=== PATIENT | female | born 1965 | race African-American/Black ===

== ENCOUNTER → 2016-09-20 | Outpatient (CLI) | payer BC, OTHER ==
[2016-09-21 08:13] LABS: ABSOLUTE BASOPHILS # (AUTO) 0.1 10^3/uL (0.0-0.2); ABSOLUTE EOSINOPHILS # (AUTO) 0.1 10^3/uL (0.0-0.6); ABSOLUTE LYMPHOCYTES (AUTO) 2.2 10^3/uL (0.5-4.7); ABSOLUTE MONOCYTES (AUTO) 0.4 10^3/uL (0.1-1.4); ABSOLUTE NEUT (AUTO) 3.5 10^3/uL (1.7-8.2); EOSINOPHILS % (AUTO) 2.1 % (0-6); HEMATOCRIT 42.1 % (36.0-47.0); HEMOGLOBIN 13.6 g/dL (12.0-15.5); HGB HCT DIFFERENCE -1.3; LYMPHOCYTES % (AUTO) 35.3 % (13-45); MEAN CORPUSCULAR HEMOGLOBIN 27.6 pg (27.0-33.4); MEAN CORPUSCULAR HGB CONC 32.3 g/dL (32.0-36.0); MEAN CORPUSCULAR VOLUME 86 fl (80-97); MONOCYTES % (AUTO) 5.9 % (3-13); RED BLOOD COUNT 4.91 10^6/uL (3.72-5.28); RED CELL DISTRIBUTION WIDTH 13.6 % (11.5-14.0); SEGMENTED NEUTROPHILS % (AUTO) 55.7 % (42-78); WHITE BLOOD COUNT 6.3 10^3/uL (4.0-10.5)
[2016-09-21 08:17] LABS: APPEARANCE,URINE SLIGHTLY-CLOUDY; BILIRUBIN,URINE NEGATIVE (NEGATIVE); GLUCOSE, URINE NEGATIVE (NEGATIVE); KETONES,URINE NEGATIVE (NEGATIVE); LEUKOCYTE ESTERASE,URINE NEGATIVE (NEGATIVE); NITRITE,URINE NEGATIVE (NEGATIVE); PROTEIN,URINE NEGATIVE (NEGATIVE); URINE SPECIFIC GRAVITY 1.008; UROBILINOGEN,URINE NEGATIVE mg/dL (<2.0)
[2016-09-21 08:44] LABS: ALANINE AMINOTRANSFERASE 29 U/L (9-52); ALBUMIN 4.5 g/dL (3.5-5.0); ALKALINE PHOSPHATASE 57 U/L (38-126); ANION GAP 13 (5-19); ASPARTATE AMINO TRANSFERASE 27 U/L (14-36); BILIRUBIN,DIRECT 0.4 mg/dL (0.0-0.4); BLOOD UREA NITROGEN 13 mg/dL (7-20); CARBON DIOXIDE 31 mmol/L (22-30); CHLORIDE 100 mmol/L (98-107); CHOLESTEROL 179.26 mg/dL (0-200); CREATININE RESULT 0.89 mg/dL (0.52-1.25); Direct HDL 60 mg/dL (>40); GLUCOSE 92 mg/dL (75-110); POTASSIUM 3.6 mmol/L (3.6-5.0); SODIUM 144.4 mmol/L (137-145); TRIGLYCERIDES 61 mg/dL (<150); URIC ACID 5.6 mg/dL (2.5-7.5)
[2016-09-21 08:55] LABS: DIRECT LDL 98 mg/dL (<100)
[2016-09-21 09:10] LABS: THYROID STIMULATING HORMONE 3.38 uIU/mL (0.47-4.68)
[2016-09-22 10:37] LABS: CREATININE URINE 104.1 mg/dL (Not Estab.); MICROALBUMIN URINE 3.8 ug/mL (Not Estab.)
== END ==
LOC: OD 12:10
PROVIDERS: ATTEND Internal Medicine
DX: I10 Essential (primary) hypertension (principal)
CPT/HCPCS: 36415; 80053; 80061; 81001; 82043; 82570; 84439; 84443; 84550; 85025

== ENCOUNTER → 2017-03-29 | Outpatient (CLI) | payer BC, OTHER ==
[2017-03-29 08:17] LABS: ABSOLUTE EOSINOPHILS # (AUTO) 0.1 10^3/uL (0.0-0.6); ABSOLUTE LYMPHOCYTES (AUTO) 2.2 10^3/uL (0.5-4.7); ABSOLUTE MONOCYTES (AUTO) 0.4 10^3/uL (0.1-1.4); ABSOLUTE NEUT (AUTO) 2.5 10^3/uL (1.7-8.2); BASOPHILS % (AUTO) 0.9 % (0-2); EOSINOPHILS % (AUTO) 1.6 % (0-6); HEMATOCRIT 40.8 % (36.0-47.0); HEMOGLOBIN 13.6 g/dL (12.0-15.5); LYMPHOCYTES % (AUTO) 42.4 % (13-45); MEAN CORPUSCULAR HEMOGLOBIN 28.2 pg (27.0-33.4); MEAN CORPUSCULAR HGB CONC 33.4 g/dL (32.0-36.0); MEAN CORPUSCULAR VOLUME 85 fl (80-97); MONOCYTES % (AUTO) 6.8 % (3-13); RED BLOOD COUNT 4.82 10^6/uL (3.72-5.28); RED CELL DISTRIBUTION WIDTH 13.3 % (11.5-14.0); SEGMENTED NEUTROPHILS % (AUTO) 48.3 % (42-78); WHITE BLOOD COUNT 5.2 10^3/uL (4.0-10.5)
[2017-03-29 08:19] LABS: APPEARANCE,URINE CLEAR; BILIRUBIN,URINE NEGATIVE (NEGATIVE); GLUCOSE, URINE NEGATIVE (NEGATIVE); KETONES,URINE NEGATIVE (NEGATIVE); LEUKOCYTE ESTERASE,URINE TRACE (NEGATIVE); NITRITE,URINE NEGATIVE (NEGATIVE); PROTEIN,URINE NEGATIVE (NEGATIVE); URINE SPECIFIC GRAVITY 1.011; UROBILINOGEN,URINE NEGATIVE mg/dL (<2.0)
[2017-03-29 09:07] LABS: ALANINE AMINOTRANSFERASE 34 U/L (9-52); ALBUMIN 4.7 g/dL (3.5-5.0); ALKALINE PHOSPHATASE 52 U/L (38-126); ANION GAP 13 (5-19); ASPARTATE AMINO TRANSFERASE 30 U/L (14-36); BILIRUBIN,DIRECT 0.4 mg/dL (0.0-0.4); BILIRUBIN,TOTAL 1.2 mg/dL (0.2-1.3); BLOOD UREA NITROGEN 13 mg/dL (7-20); CARBON DIOXIDE 31 mmol/L (22-30); CHLORIDE 103 mmol/L (98-107); CHOLESTEROL 174.69 mg/dL (0-200); CREATININE RESULT 0.96 mg/dL (0.52-1.25); Direct HDL 65 mg/dL (>40); GLUCOSE 92 mg/dL (75-110); POTASSIUM 4.1 mmol/L (3.6-5.0); SODIUM 147.1 mmol/L (137-145); TOTAL PROTEIN 7.9 g/dL (6.3-8.2); TRIGLYCERIDES 74 mg/dL (<150); URIC ACID 5.6 mg/dL (2.5-7.5)
[2017-03-29 09:23] LABS: DIRECT LDL 96 mg/dL (<100)
[2017-03-29 09:34] LABS: THYROID STIMULATING HORMONE 2.37 uIU/mL (0.47-4.68)
[2017-03-30 14:38] LABS: CREATININE URINE 146.8 mg/dL (Not Estab.); MICROALBUMIN URINE 8.8 ug/mL (Not Estab.)
== END ==
LOC: OD 07:05
PROVIDERS: ATTEND Internal Medicine
DX: I10 Essential (primary) hypertension (principal)
CPT/HCPCS: 36415; 80053; 80061; 81001; 82043; 82570; 84439; 84443; 84550; 85025

== ENCOUNTER → 2017-09-27 | Outpatient (CLI) | payer BC, OTHER ==
[2017-09-27 09:04] LABS: APPEARANCE,URINE SLIGHTLY-CLOUDY; BILIRUBIN,URINE NEGATIVE (NEGATIVE); COLOR,URINE YELLOW; GLUCOSE, URINE NEGATIVE (NEGATIVE); KETONES,URINE NEGATIVE (NEGATIVE); LEUKOCYTE ESTERASE,URINE SMALL (NEGATIVE); NITRITE,URINE NEGATIVE (NEGATIVE); PROTEIN,URINE NEGATIVE (NEGATIVE); UROBILINOGEN,URINE NEGATIVE mg/dL (<2.0)
[2017-09-27 09:07] LABS: ABSOLUTE EOSINOPHILS # (AUTO) 0.1 10^3/uL (0.0-0.6); ABSOLUTE LYMPHOCYTES (AUTO) 1.9 10^3/uL (0.5-4.7); ABSOLUTE MONOCYTES (AUTO) 0.3 10^3/uL (0.1-1.4); ABSOLUTE NEUT (AUTO) 2.6 10^3/uL (1.7-8.2); BASOPHILS % (AUTO) 0.9 % (0-2); EOSINOPHILS % (AUTO) 2.3 % (0-6); HEMATOCRIT 40.5 % (36.0-47.0); HEMOGLOBIN 13.3 g/dL (12.0-15.5); LYMPHOCYTES % (AUTO) 37.9 % (13-45); MEAN CORPUSCULAR HEMOGLOBIN 28.1 pg (27.0-33.4); MEAN CORPUSCULAR HGB CONC 32.8 g/dL (32.0-36.0); MEAN CORPUSCULAR VOLUME 86 fl (80-97); MONOCYTES % (AUTO) 6.6 % (3-13); PLATELET COUNT 210 10^3/uL (150-450); RED BLOOD COUNT 4.72 10^6/uL (3.72-5.28); RED CELL DISTRIBUTION WIDTH 13.2 % (11.5-14.0); SEGMENTED NEUTROPHILS % (AUTO) 52.3 % (42-78); TOTAL CELLS COUNTED % (AUTO) 100 %
[2017-09-27 09:32] LABS: ALANINE AMINOTRANSFERASE 31 U/L (9-52); ALBUMIN 4.8 g/dL (3.5-5.0); ALKALINE PHOSPHATASE 49 U/L (38-126); ANION GAP 14 (5-19); ASPARTATE AMINO TRANSFERASE 29 U/L (14-36); BILIRUBIN,DIRECT 0.3 mg/dL (0.0-0.4); BILIRUBIN,TOTAL 1.2 mg/dL (0.2-1.3); BLOOD UREA NITROGEN 17 mg/dL (7-20); CALCIUM 10.1 mg/dL (8.4-10.2); CARBON DIOXIDE 33 mmol/L (22-30); CHLORIDE 100 mmol/L (98-107); CHOLESTEROL 184.05 mg/dL (0-200); GLUCOSE 90 mg/dL (75-110); POTASSIUM 3.9 mmol/L (3.6-5.0); SODIUM 146.8 mmol/L (137-145); TOTAL PROTEIN 8.1 g/dL (6.3-8.2); TRIGLYCERIDES 69 mg/dL (<150); URIC ACID 5.9 mg/dL (2.5-7.5)
[2017-09-27 09:47] LABS: DIRECT LDL 96 mg/dL (<100)
[2017-09-27 09:59] LABS: FREE T4 (FREE THYROXINE) 0.93 ng/dL (0.78-2.19)
[2017-09-27 10:13] LABS: THYROID STIMULATING HORMONE 3.01 uIU/mL (0.47-4.68)
[2017-09-28 12:37] LABS: CREATININE URINE 98.2 mg/dL (Not Estab.); MICROALBUMIN URINE 4.8 ug/mL (Not Estab.)
== END ==
LOC: OD 07:09
PROVIDERS: ATTEND Internal Medicine
DX: I10 Essential (primary) hypertension (principal)
CPT/HCPCS: 36415; 80053; 80061; 81001; 82043; 82570; 84439; 84443; 84550; 85025

== ENCOUNTER → 2018-09-24 | Outpatient (CLI) | payer BC, OTHER ==
[2018-09-24 08:49] LABS: ABSOLUTE EOSINOPHILS # (AUTO) 0.1 10^3/uL (0.0-0.6); ABSOLUTE MONOCYTES (AUTO) 0.4 10^3/uL (0.1-1.4); ABSOLUTE NEUT (AUTO) 2.6 10^3/uL (1.7-8.2); BASOPHILS % (AUTO) 0.6 % (0-2); EOSINOPHILS % (AUTO) 2.1 % (0-6); HEMATOCRIT 41.4 % (36.0-47.0); HEMOGLOBIN 13.5 g/dL (12.0-15.5); LYMPHOCYTES % (AUTO) 39.7 % (13-45); MEAN CORPUSCULAR HEMOGLOBIN 27.8 pg (27.0-33.4); MEAN CORPUSCULAR HGB CONC 32.6 g/dL (32.0-36.0); MEAN CORPUSCULAR VOLUME 86 fl (80-97); PLATELET COUNT 198 10^3/uL (150-450); RED BLOOD COUNT 4.84 10^6/uL (3.72-5.28); RED CELL DISTRIBUTION WIDTH 13.3 % (11.5-14.0); SEGMENTED NEUTROPHILS % (AUTO) 50.6 % (42-78); TOTAL CELLS COUNTED % (AUTO) 100 %; WHITE BLOOD COUNT 5.1 10^3/uL (4.0-10.5)
[2018-09-24 09:01] LABS: APPEARANCE,URINE SLIGHTLY-CLOUDY; BILIRUBIN,URINE NEGATIVE (NEGATIVE); COLOR,URINE YELLOW; GLUCOSE, URINE NEGATIVE (NEGATIVE); KETONES,URINE TRACE mg/dL (NEGATIVE); LEUKOCYTE ESTERASE,URINE NEGATIVE (NEGATIVE); NITRITE,URINE NEGATIVE (NEGATIVE); PROTEIN,URINE NEGATIVE (NEGATIVE); UROBILINOGEN,URINE NEGATIVE mg/dL (<2.0)
[2018-09-24 09:21] LABS: ALANINE AMINOTRANSFERASE 42 U/L (9-52); ALBUMIN 4.6 g/dL (3.5-5.0); ALKALINE PHOSPHATASE 55 U/L (38-126); ANION GAP 12 (5-19); ASPARTATE AMINO TRANSFERASE 29 U/L (14-36); BILIRUBIN,DIRECT 0.2 mg/dL (0.0-0.4); BILIRUBIN,TOTAL 1.2 mg/dL (0.2-1.3); BLOOD UREA NITROGEN 14 mg/dL (7-20); CARBON DIOXIDE 32 mmol/L (22-30); CHLORIDE 100 mmol/L (98-107); CHOLESTEROL 176.73 mg/dL (0-200); GLUCOSE 87 mg/dL (75-110); SODIUM 143.7 mmol/L (137-145); TOTAL PROTEIN 7.9 g/dL (6.3-8.2); TRIGLYCERIDES 71 mg/dL (<150); URIC ACID 5.9 mg/dL (2.5-7.5)
[2018-09-24 09:33] LABS: DIRECT LDL 102 mg/dL (<100)
[2018-09-24 09:39] LABS: FREE T4 (FREE THYROXINE) 0.89 ng/dL (0.78-2.19)
[2018-09-24 09:49] LABS: THYROID STIMULATING HORMONE 5.82 uIU/mL (0.47-4.68)
[2018-09-25 12:37] LABS: CREATININE URINE 276.7 mg/dL (Not Estab.); MICROALBUMIN URINE 15.6 ug/mL (Not Estab.)
== END ==
LOC: OD 07:04
PROVIDERS: ATTEND Internal Medicine
DX: I10 Essential (primary) hypertension (principal)
CPT/HCPCS: 36415; 80053; 80061; 81001; 82043; 82570; 84439; 84443; 84550; 85025

== ENCOUNTER → 2019-06-30 | Outpatient (CLI) | payer BC, OTHER ==
--- NOTE | 2019-06-30 10:58 | WOMENS IMAGING REPORT ---
EXAM DESCRIPTION: 3D DIAG MAMMO BILAT NO CHG; U/S BREAST UNILAT LIMITED COMPLETED DATE/TIME: 06/30/2019 10:20 am; 06/30/2019 10:40 am REASON FOR STUDY: N63.10 UNSPECIFIED LUMP IN THE RIGHT BREAST, UNSPECIFIED QUADRANT N63.10 UNSPECIF IED LUMP IN THE RIGHT BREAST, UNSPECIFIED FLAQUITO COMPARISON: 08/01/2018 and 04/03/2017. EXAM PARAMETERS: Standard craniocaudal and mediolateral oblique views of each breast recorded using digital acquisition and breast tomosynthesis. Additional true lateral and spot compression MLO and CC images acquired with tomosynthesis. Read with the assistance of CAD: .BO.LT [employer] Regenerator Version 9.2 LIMITATIONS: None. FINDINGS: RIGHT BREAST MASSES: Indistinct mass in the upper-outer breast, best visualized on MLO and lateral images and less distinct on CC images. Margins appear fairly smooth although partially obscured by parenchyma. CALCIFICATIONS: No new or suspicious calcifications. ARCHITECTURAL DISTORTION: None. ASYMMETRY: None noted. OTHER: No other significant findings. LEFT BREAST MASSES: No suspicious masses. CALCIFICATIONS: No new or suspicious calcifications. ARCHITECTURAL DISTORTION: None. ASYMMETRY: None noted. OTHER: No other significant finding. BREAST ULTRASOUND: TECHNIQUE: Static and dynamic grayscale images acquired of the right breast in the specific areas of clinical/mammographic concern, 10- 11 o'clock location. . Selected color Doppler images recorded. ELASTOGRAPHY PERFORMED: No. LIMITATIONS: None. FINDINGS: MASS: 1.3 x 2.0 x 2.1 cm hypoechoic mass in the deep breast. Indistinct margins. Mild distal acoust ic enhancement. ELASTOGRAPHY CHARACTERISTICS: Not applicable. OTHER: No other significant finding. IMPRESSION: Indistinct mass in the upper-outer right breast. Appears solid on ultrasound although c ould be a complex cyst with debris. Recommend biopsy. Stable mammographic appearance of the left br east. BREAST DENSITY: c. The breasts are heterogeneously dense, which may obscure small masses. BIRAD: ASSESSMENT: 4 Suspicious. Biopsy should be performed in the absence of clinical contra-indic ation. RECOMMENDATION: RECOMMENDED FOLLOW UP: Birads 4: Biopsy should be performed in the absence of clinic al contraindication. SPECIFIC INTERVENTION/IMAGING/CONSULTATION RECOMMENDED:The suspicious finding(s) amenable to US guide d core/vacuum assisted biopsy. COMMUNICATION:The imaging findings were not discussed with the patient. Her referring provider has be en notified of the findings. COMMENT: The patient has been notified of the results by letter per SA requirements. Additional no tification policies are in place for contacting patient with suspicious or incomplete findings. Quality ID #225: The [employer] recommends an annual screening mammogram for women aged 40 years or over. This facility utilizes a reminder system to ensure that all patients receive reminder letters, and/or direct phone calls for appointments. This includes reminders for routine scr eening mammograms, diagnostic mammograms, or other Breast Imaging Interventions when appropriate. Th is patient will be placed in the appropriate reminder system. TECHNICAL DOCUMENTATION: FINDING NUMBER: (1) ASSESSMENT: (1) JOB ID: [id number] 2010 [employer]- All Rights Reserved Reading location - IP/workstation name: [email or web address]
== END ==
LOC: WI 09:24
PROVIDERS: ATTEND Family Medicine
DX: N63.11 Unspecified lump in the right breast, upper outer quadrant (principal)
CPT/HCPCS: 76642

== ENCOUNTER → 2019-08-04 | Outpatient (CLI) | payer BC, OTHER ==
--- NOTE | 2019-08-04 14:22 | RADIOLOGY REPORT (SQ) ---
EXAM DESCRIPTION: CT ABD/PELVIS WITH IV ORAL COMPLETED DATE/TIME: 08/04/2019 1:51 pm REASON FOR STUDY: C50.411 MALIG NEOPLM OF UPPER-OUTER QUADRANT OF RIGHT FEMALE BREAST C50.411 MALIG NEOPLM OF UPPER-OUTER QUADRANT OF RIGHT FEMALE COMPARISON: None. TECHNIQUE: CT scan of the abdomen and pelvis performed using helical scanning technique with dynamic intravenous contrast injection. No oral contrast. Images reviewed with lung, soft tissue, and bone windows. Reconstructed coronal and sagittal MPR images reviewed. Delayed images for evaluation of the urinary system also acquired. All images stored on PACS. All CT scanners at this facility use dose modulation, iterative reconstruction, and/or weight based d osing when appropriate to reduce radiation dose to as low as reasonably achievable (ALARA). [facility]: Dose Right [facility]: CareDose [facility]: Dose Right [facility]: Teradose 4D [facility]: [employer] CONTRAST TYPE AND DOSE: contrast/concentration: Isovue 350.00 mg/ml; Total Contrast Delivered: 72.0 ml; Total Saline Delivered: 66.0 ml RENAL FUNCTION: Creatinine 0.9. RADIATION DOSE: . LIMITATIONS: None. FINDINGS: LOWER CHEST: No significant findings. No nodules or infiltrates. LIVER: Normal size. 1.5 cm low-attenuation mass in the right lobe. Slightly indistinct margins and peripheral enhancement on delayed images. No dilated ducts. SPLEEN: Normal size. No focal lesions. PANCREAS: No masses. No significant calcifications. No adjacent inflammation or peripancreatic fluid collections. Pancreatic duct not dilated. GALLBLADDER: No identified stones by CT criteria. No inflammatory changes to suggest cholecystitis. ADRENAL GLANDS: No significant masses or asymmetry. RIGHT KIDNEY AND URETER: No solid masses. No significant calcifications. No hydronephrosis or hyd roureter. LEFT KIDNEY AND URETER: No solid masses. No significant calcifications. No hydronephrosis or hydr oureter. AORTA AND VESSELS: No aneurysm. No dissection. Renal arteries, SMA, celiac without stenosis. RETROPERITONEUM: No retroperitoneal adenopathy, hemorrhage or masses. BOWEL AND PERITONEAL CAVITY: No masses or inflammatory changes. No free fluid or peritoneal masses. APPENDIX: Normal. PELVIS: No mass. IUD in the uterus. No free fluid. Normal bladder. ABDOMINAL WALL: No masses. No hernias. BONES: No significant or acute findings. OTHER: No other significant finding. IMPRESSION: 1. LOW-ATTENUATION MASS IN THE RIGHT LOBE OF THE LIVER MAY BE A HEMANGIOMA. HOWEVER, GIVEN THE CLINI TORIN HISTORY OF BREAST CANCER, POSSIBILITY OF METASTATIC LESION NEEDS TO BE CONSIDERED. WOULD RECOMME ND MRI OF THE LIVER. 2. NO OTHER SIGNIFICANT OR ACUTE FINDING IN THE ABDOMEN OR PELVIS ON CT SCAN WITH IV CONTRAST. TECHNICAL DOCUMENTATION: JOB ID: [id number] Quality ID # 436: Final reports with documentation of one or more dose reduction techniques (e.g., Au tomated exposure control, adjustment of the mA and/or kV according to patient size, use of iterative reconstruction technique) 2010 [employer]- All Rights Reserved Reading location - IP/workstation name: [email or web address]
--- NOTE | 2019-08-04 14:27 | RADIOLOGY REPORT (SQ) ---
EXAM DESCRIPTION: CT CHEST WITH COMPLETED DATE/TIME: 08/04/2019 1:51 pm REASON FOR STUDY: C50.411 MALIG NEOPLM OF UPPER-OUTER QUADRANT OF RIGHT FEMALE BREAST C50.411 MALIG NEOPLM OF UPPER-OUTER QUADRANT OF RIGHT FEMALE COMPARISON: None. TECHNIQUE: CT scan of the chest performed using helical scanning technique with dynamic intravenous contrast injection. Images reviewed with lung, soft tissue and bone windows. Reconstructed coronal and sagittal MPR and MIP images reviewed. All images stored on PACS. All CT scanners at this facility use dose modulation, iterative reconstruction, and/or weight based d osing when appropriate to reduce radiation dose to as low as reasonably achievable (ALARA). [facility]: Dose Right [facility]: CareDose [facility]: Dose Right [facility]: Teradose 4D [facility]: [employer] CONTRAST TYPE AND DOSE: 72 mL Omnipaque 350- low osmolar. RENAL FUNCTION: Creatinine 0.9. RADIATION DOSE: CT Rad equipment meets quality standard of care and radiation dose reduction techniq ues were employed. CTDIvol: 4.4 - 5.0 mGy. DLP: 663 mGy-cm. . LIMITATIONS: None. FINDINGS: LUNGS AND PLEURA: No opacities, nodules, masses. No pneumothorax. No effusions. HILAR AND MEDIASTINAL STRUCTURES: No identified masses or abnormal nodes. HEART AND VASCULAR STRUCTURES: No aneurysm or dissection. No central pulmonary emboli. No pericardi al effusion. HARDWARE: None in the chest. UPPER ABDOMEN: See separate report of the CT of the abdomen. THYROID AND OTHER SOFT TISSUES: No masses. No adenopathy. BONES: No significant finding. OTHER: Mass in the right breast with biopsy clip. Mild right axillary adenopathy, the largest lymph node measures 10 x 15 mm. IMPRESSION: 1. MASS IN THE RIGHT BREAST WITH BIOPSY CLIP. MILD RIGHT AXILLARY ADENOPATHY. 2. OTHERWISE UNREMARKABLE CT OF THE CHEST WITH IV CONTRAST. TECHNICAL DOCUMENTATION: JOB ID: [id number] Quality ID # 436: Final reports with documentation of one or more dose reduction techniques (e.g., Au tomated exposure control, adjustment of the mA and/or kV according to patient size, use of iterative reconstruction technique) 2010 [employer]- All Rights Reserved Reading location - IP/workstation name: [email or web address]
== END ==
LOC: RAD 13:17
PROVIDERS: ATTEND Internal Medicine Hematology & Oncology
DX: C50.411 Malignant neoplasm of upper-outer quadrant of right female breast (principal)
CPT/HCPCS: 71260; 74177; 82565

== ENCOUNTER 2019-08-05 11:04 | Day surgery (SDC) | payer BC, OTHER ==
[~2019-08-05 11:04] MED LIST: ACETAMINOPHEN 325 MG TABLET PO PRN; CEFAZOLIN 1 GM/D5W RTU 1 GM/50 ML RTUPB IV PRN
[2019-08-05] MEDS ORDERED: CEFAZOLIN 1 GM/D5W RTU 1 GM/50 ML RTUPB IV ONE (11:30)
[2019-08-05 11:35] LABS: ABSOLUTE EOSINOPHILS # (AUTO) 0.1 10^3/uL (0.0-0.6); ABSOLUTE LYMPHOCYTES (AUTO) 2.6 10^3/uL (0.5-4.7); ABSOLUTE MONOCYTES (AUTO) 0.4 10^3/uL (0.1-1.4); ABSOLUTE NEUT (AUTO) 2.6 10^3/uL (1.7-8.2); BASOPHILS % (AUTO) 0.8 % (0-2); EOSINOPHILS % (AUTO) 1.6 % (0-6); HEMATOCRIT 42.6 % (36.0-47.0); LYMPHOCYTES % (AUTO) 45.1 % (13-45); MEAN CORPUSCULAR HEMOGLOBIN 27.9 pg (27.0-33.4); MEAN CORPUSCULAR HGB CONC 32.8 g/dL (32.0-36.0); MEAN CORPUSCULAR VOLUME 85 fl (80-97); MONOCYTES % (AUTO) 7.2 % (3-13); PLATELET COUNT 236 10^3/uL (150-450); RED CELL DISTRIBUTION WIDTH 13.4 % (11.5-14.0); SEGMENTED NEUTROPHILS % (AUTO) 45.3 % (42-78); TOTAL CELLS COUNTED % (AUTO) 100 %; WHITE BLOOD COUNT 5.8 10^3/uL (4.0-10.5)
[2019-08-05] MEDS ORDERED: FENTANYL CITRATE INJ/PF 100 MCG/2 ML AMPUL ONE ×2 (12:15→13:42)
[2019-08-05] MEDS ORDERED: MIDAZOLAM 2 MG/2 ML INJ ONE ×3 (12:15→13:42)
[2019-08-05] MEDS ORDERED: PROPOFOL INJ 200 MG/20 ML VIAL IV ONE ×2 (12:15→13:43)
[2019-08-05] MEDS ORDERED: LIDOCAINE 1%/EPINEPHRINE INJ 20 ML VIAL ONE (12:59)
[2019-08-05] MEDS ORDERED: MEPERIDINE HCL/PF INJ 25 MG/1 ML DISP.SYRIN IV PRN (14:32)
[2019-08-05] MEDS ORDERED: FENTANYL CITRATE INJ/PF 100 MCG/2 ML AMPUL IV PRN ×3 (14:32)
[2019-08-05] MEDS ORDERED: PROMETHAZINE HCL INJ 25 MG/1 ML VIAL IV PRN ×2 (14:32)
[2019-08-05] MEDS ORDERED: MORPHINE SULFATE 10 MG/ML INJ IV PRN (14:32)
[2019-08-05] MEDS ORDERED: DIPHENHYDRAMINE HCL 50 MG/ML VIAL IV PRN (14:32)
--- NOTE | 2019-08-05 14:54 | Operative Report ---
Operative Report DATE OF SURGERY: 08/05/19 PREOPERATIVE DIAGNOSIS: Invasive ductal carcinoma right breast POSTOPERATIVE DIAGNOSIS: Same OPERATION: 1. Placement of left subclavian [id number]. 2. Ultrasound directed insertion of left IJ catheter. 3. Interpretation of intraoperative fluoroscopy SURGEON: JODI BARRIENTOS ANESTHESIA: LMAC TISSUE REMOVED OR ALTERED: None COMPLICATIONS: None ESTIMATED BLOOD LOSS: Scant INTRAOPERATIVE FINDINGS: See below PROCEDURE: Patient was taken the preop holding area to the main operating room where LMAC anesthesia was induced. Arms were tucked neck and chest wall prepped and draped in sterile fashion. Surgical plan surgical timeout were conducted. The left neck was anesthetized 1% plain lidocaine. Using ultrasound as a guide, a bryan was made the skin with 11 blade, and a micro needle and wire were threaded into the left internal jugular vein without difficulty. A suitable site for placement of the port was chosen left subclavian position. The skin was anesthetized with 1% plain lidocaine. A 3 cm incision was made in the subclavian position, subcutaneous tissue divided with electrocautery, and a pocket was developed large enough to accommodate a single-chamber port. The catheter was then trimmed to the appropriate length, tunneled between the 2 incisions, attached to the port with the plastic ring and the port tucked into the pocket The micro wire was switched over to a 0.030 guidewire using the micro introducer sheath. We then threaded an 8 Urdu dilator introducer sheath over the guidewire, dilator and guidewire removed, and catheter free and threaded into the strip away sheath. Sheath was removed leaving the catheter with the tip in the superior vena cava right atrial junction. There was no kinking of the catheter. There was no evidence of ectopy. The chamber was aspirated and flushed with heparinized saline. Wounds closed with 3-0 Vicryl benzoin and Steri-Strips. Patient tolerated the procedure well, taken recovery in stable condition.
--- NOTE | 2019-08-05 14:57 | Discharge Summary ---
Discharge Summary (SDC) - Discharge Final Diagnosis: Invasive right breast carcinoma Date of Surgery: 08/05/19 Discharge Date: 08/05/19 Condition: Good Treatment or Instructions: May use port; may shower; return to [facility] in 2 weeks or call for an appointment. Referrals: ADA RENDON MD [Primary Care Provider] - Discharge Diet: As Tolerated Discharge Activity: Activity As Tolerated Home Care Assistance: None Needed Report the Following to Your Physician Immediately: Shortness of Breath, Increase in Pain, Fever over 101 Degrees
--- NOTE | 2019-08-05 15:28 | RADIOLOGY REPORT (SQ) ---
EXAM DESCRIPTION: FLUORO/CV PLACEMENT COMPLETED DATE/TIME: 08/05/2019 3:08 pm REASON FOR STUDY: LEFT PORTACATH PLACEMENT ASSISTED WITH FLUOROSCOPY IN SURGERY C50.919 MALIGNANT N EOPLASM OF UNSP SITE OF UNSPECIFIED FEMAL COMPARISON: None. FLUOROSCOPY TIME: 0.1 minutes 3 images saved to PACS. TECHNIQUE: Intra-operative images acquired during surgical procedure to evaluate progress. NUMBER OF IMAGES: 3 images LIMITATIONS: None. FINDINGS: Limited fluoroscopic images demonstrate evidence of left internal jugular based port place ment. Please see operative report for detailed description. IMPRESSION: IMAGE(S) OBTAINED DURING PROCEDURE. COMMENT: Quality ID 145: Final reports for procedures using fluoroscopy that document radiation exp osure indices, or exposure time and number of fluorographic images (if radiation exposure indices are not available) Please consult full operative report of the attending physician for description of the procedure. TECHNICAL DOCUMENTATION: JOB ID: [id number] 2010 [employer]- All Rights Reserved Reading location - IP/workstation name: [email or web address]
[2019-08-05 16:01] VITALS: BP 164/92
--- NOTE | 2019-08-05 20:03 | EKG REPORT ---
SEVERITY:- NORMAL ECG - SINUS RHYTHM : Confirmed by: Aneta Castro MD 05-Aug-2019 20:02:10
== END 2019-08-05 16:10 | disposition home or self-care (01) ==
LOC: OROUT 11:04
PROVIDERS: ATTEND Surgery
DX: C50.911 Malignant neoplasm of unspecified site of right female breast (principal); Z80.3 Family history of malignant neoplasm of breast; I10 Essential (primary) hypertension; Z79.899 Other long term (current) drug therapy
CPT/HCPCS: 36561; 36415; 84132; 85025; 81025; 77001; 93005; 93010; C1752; C1788; J2250; J0690; J3010; J3490; J2704; J1642; 532

== ENCOUNTER → 2019-08-07 | Outpatient (CLI) | payer BC, OTHER ==
--- NOTE | 2019-08-07 12:52 | RADIOLOGY REPORT (SQ) ---
EXAM DESCRIPTION: NM WHOLE BODY BONE SCAN COMPLETED DATE/TIME: 08/07/2019 12:40 pm REASON FOR STUDY: C50.411 MALIG NEOPLM OF UPPER-OUTER QUADRANT OF RIGHT FEMALE BREAST C50.411 MALIG NEOPLM OF UPPER-OUTER QUADRANT OF RIGHT FEMALE COMPARISON: CT CHEST ABDOMEN PELVIS 08/04/2019 RADIONUCLIDE AND DOSE: 22 millicuries Tc99m MDP. The route of agent administration: Intravenous. ADDITIONAL DRUGS AND DOSES: None. TECHNIQUE: Routine delayed images at 3 hour post radionuclide injection acquired of the bony skeleto n including anterior and posterior whole-body projections and additional focused images as needed. LIMITATIONS: None. FINDINGS: BONES: Mild increased uptake along the left knee, likely due to osteoarthritis. No skeletal uptake worrisome for metastatic disease. KIDNEYS: Symmetric excretion without obstruction. OTHER: No other significant finding. IMPRESSION: No skeletal uptake worrisome for metastatic disease. Mild increased uptake at the left knee likely from osteoarthritis COMMENT: Quality measure 147: Current bone scan is compared with any available plain radiographs, p rior bone scans, and CT/MRI. TECHNICAL DOCUMENTATION: JOB ID: [id number] 2010 [employer]- All Rights Reserved Reading location - IP/workstation name: [email or web address]
== END ==
LOC: RAD 08:50
PROVIDERS: ATTEND Internal Medicine Hematology & Oncology
DX: C50.411 Malignant neoplasm of upper-outer quadrant of right female breast (principal)
CPT/HCPCS: 78306; A9561; Q9969

== ENCOUNTER → 2019-08-27 | Outpatient (CLI) | payer BC, OTHER ==
--- NOTE | 2019-08-27 11:42 | RADIOLOGY REPORT (SQ) ---
EXAM DESCRIPTION: MRI ABDOMEN COMBO IMAGES COMPLETED DATE/TIME: 08/27/2019 11:23 am REASON FOR STUDY: BREAST CANCER LIVER METS C50.411 MALIG NEOPLM OF UPPER-OUTER QUADRANT OF RIGHT FE MALE COMPARISON: CT dated 08/04/2019. TECHNIQUE: Multiplanar multisequence imaging performed without and with contrast including sagittal, axial and coronal T2, axial T1, axial gradient fat sat T1, axial, sagittal and coronal fat sat T1 po st contrast. CONTRAST TYPE AND DOSE: 20 mL Dotarem. RENAL FUNCTION: Not indicated. ACR Type II contrast agent associated with few, if any, unconfounded cases of NSF LIMITATIONS: None. FINDINGS: LIVER: Normal size. 1.8 cm circumscribed lesion in the right lobe. Homogeneous decreased signal on T1 and increased signal on T2 weighted images. Slow gradual progressive peripheral nodula r enhancement on postcontrast series. No dilated ducts. CBD normal. SPLEEN: Normal size. No focal lesions. PANCREAS: No masses. No adjacent inflammation or peripancreatic fluid collections. Pancreatic duct no t dilated. GALLBLADDER: No masses. Gallstones. No gallbladder wall thickening or pericholecystic fluid. ADRENAL GLANDS: No significant masses or asymmetry. RIGHT KIDNEY AND URETER: No masses. No hydronephrosis. LEFT KIDNEY AND URETER: No masses. No hydronephrosis. AORTA AND VESSELS: No aneurysm. No dissection. Renal arteries, SMA, celiac without stenosis. RETROPERITONEUM: No retroperitoneal adenopathy, hemorrhage or masses. BOWEL: No visualized masses. No inflammation. No significant dilatation. ABDOMINAL WALL AND PERITONEUM: No hernias. No free fluid. BONES: No acute or significant findings. OTHER: No other significant finding. IMPRESSION: 1. 1.8 CM LESION IN THE RIGHT LOBE OF THE LIVER WHICH HAS CHARACTERISTICS OF A HEMANGIOMA. NO OTHER HEPATIC LESIONS OR SIGNIFICANT FINDINGS ELSEWHERE IN THE ABDOMEN. 2. GALLSTONES. TECHNICAL DOCUMENTATION: JOB ID: [id number] 2010 [employer]- All Rights Reserved Reading location - IP/workstation name: [email or web address]
== END ==
LOC: RAD 10:24
PROVIDERS: ATTEND Internal Medicine Hematology & Oncology
DX: C50.411 Malignant neoplasm of upper-outer quadrant of right female breast (principal); K76.89 Other specified diseases of liver; K80.80 Other cholelithiasis without obstruction
CPT/HCPCS: 74183; A9576

== ENCOUNTER → 2020-02-01 | Outpatient (CLI) | payer BC, OTHER ==
--- NOTE | 2020-02-02 12:16 | RADIOLOGY REPORT (SQ) ---
EXAM DESCRIPTION: NM MUGA REST IMAGES COMPLETED DATE/TIME: 02/01/2020 12:59 pm REASON FOR STUDY: MALIG NEOPLM OF UPPER-OUTER QUADRANT OF RIGHT FEMALE BREAST C50.411 MALIG NEOPLM OF UPPER-OUTER QUADRANT OF RIGHT FEMALE COMPARISON: Various imaging studies. RADIONUCLIDE AND DOSE: 23.4 mCi technetium 99m labeled red blood cells The route of agent administration: Intravenous TECHNIQUE: Following administration of the radionuclide, gated images of the heart are obtained in t hree projections. Left ventricular functional analysis performed. LIMITATIONS: None. FINDINGS: LEFT VENTRICULAR FUNCTION: EJECTION FRACTION: 60%. END-DIASTOLIC VOLUME: 107 mL. END-SYSTOLIC VOLUME: 34 mL. WALL MOTION: No focal wall motion abnormalities. OTHER: No other significant finding. IMPRESSION: NORMAL CARDIAC MUGA STUDY. NORMAL LEFT VENTRICULAR FUNCTION WITH VALUES ABOVE. TECHNICAL DOCUMENTATION: JOB ID: [id number] 2010 [employer]- All Rights Reserved Reading location - IP/workstation name: [email or web address]
== END ==
LOC: RAD 10:50
PROVIDERS: ATTEND Nurse Practitioner Family
DX: C50.411 Malignant neoplasm of upper-outer quadrant of right female breast (principal); Z79.899 Other long term (current) drug therapy; Z08 Encounter for follow-up examination after completed treatment for malignant neoplasm
CPT/HCPCS: 78472; A9560; Q9969

== ENCOUNTER 2020-02-24 05:37 | Day surgery (SDC) | payer BC, OTHER ==
[2020-02-19 12:38] LABS: HEMATOCRIT 36.4 % (36.0-47.0); MEAN CORPUSCULAR HEMOGLOBIN 30.1 pg (27.0-33.4); MEAN CORPUSCULAR VOLUME 91 fl (80-97); PLATELET COUNT 246 10^3/uL (150-450); RED BLOOD COUNT 3.99 10^6/uL (3.72-5.28); WHITE BLOOD COUNT 2.8 10^3/uL (4.0-10.5)
--- NOTE | 2020-02-19 12:56 | EKG REPORT ---
SEVERITY:- BORDERLINE ECG - SINUS RHYTHM BORDERLINE T ABNORMALITIES, ANT-LAT LEADS : Confirmed by: Mookie Matthew MD 19-Feb-2020 12:55:17
[2020-02-19 13:05] LABS: ANION GAP 10 (5-19); BLOOD UREA NITROGEN 15 mg/dL (7-20); CALCIUM 10.1 mg/dL (8.4-10.2); CARBON DIOXIDE 28 mmol/L (22-30); CHLORIDE 102 mmol/L (98-107); GLUCOSE 93 mg/dL (75-110); POTASSIUM 4.3 mmol/L (3.6-5.0)
[2020-02-24] MEDS ORDERED: FENTANYL CITRATE INJ/PF 100 MCG/2 ML AMPUL ONE ×2 (07:05→10:40)
[2020-02-24] MEDS ORDERED: LIDOCAINE 2% INJ-PF (100 MG/5 ML) SYRINGE ONE (07:05)
[2020-02-24] MEDS ORDERED: PROPOFOL INJ 200 MG/20 ML VIAL IV ONE (07:06)
[2020-02-24] MEDS ORDERED: HYDROMORPHONE HCL INJ/PF 2 MG/ML AMPULE ONE (07:06)
[2020-02-24] MEDS ORDERED: CEFAZOLIN 1 GM/D5W RTU 1 GM/50 ML RTUPB IV ONE (07:08)
[2020-02-24] MEDS ORDERED: MICROFIBRILLAR COLLAGEN 1 GM PACK ONE (07:12)
[2020-02-24] MEDS ORDERED: LIDOCAINE 1%/EPINEPHRINE INJ 20 ML VIAL ONE (07:12)
[2020-02-24] MEDS ORDERED: MIDAZOLAM 2 MG/2 ML INJ ONE (07:19)
[2020-02-24] MEDS ORDERED: CEFAZOLIN 1 GM/D5W RTU 1 GM/50 ML RTUPB IV PRN (07:21)
[2020-02-24] MEDS ORDERED: DIPHENHYDRAMINE HCL 50 MG/ML VIAL IV PRN (08:11)
[2020-02-24] MEDS ORDERED: FENTANYL CITRATE INJ/PF 100 MCG/2 ML AMPUL IV PRN ×3 (08:11)
[2020-02-24] MEDS ORDERED: MEPERIDINE HCL/PF INJ 25 MG/1 ML DISP.SYRIN IV PRN (08:11)
[2020-02-24] MEDS ORDERED: PROMETHAZINE HCL INJ 25 MG/1 ML VIAL IV PRN ×2 (08:11)
[2020-02-24] MEDS ORDERED: HYDROMORPHONE HCL INJ/PF 2 MG/ML AMPULE IV PRN (08:12)
[2020-02-24] MEDS ORDERED: KETOROLAC TROMETHAMINE INJ/PF 30 MG/1 ML SDV IV PRN (10:01)
[2020-02-24] MEDS ORDERED: ONDANSETRON HCL INJ/PF 4 MG/2 ML SDV IV PRN (10:01)
--- NOTE | 2020-02-24 10:01 | Operative Report ---
Operative Report DATE OF SURGERY: 02/24/20 PREOPERATIVE DIAGNOSIS: 1. Poorly differentiated invasive ductal carcinoma rig ht breast with axillary metastases. 2. Status post neoadjuvant quadruple chemotherapy POSTOPERATIVE DIAGNOSIS: Same OPERATION: 1. Right modified radical mastectomy. 2. Closure of the chest wall over 2 drains SURGEON: JODI BELTRAN DENTURE PACKER: CAROLINA HAWKINS ANESTHESIA: GA COMPLICATIONS: None ESTIMATED BLOOD LOSS: 75 cc INTRAOPERATIVE FINDINGS: See below PROCEDURE: Patient was seen in the preop holding area the right breast was marked. The patient was then taken to the main operating room where general anesthesia was induced via LMA. Right arm abducted, bump placed under the patient's right infra-axillary area, the right axilla and right breast prepped and draped sterile fashion. Surgical plan and surgical timeout were conducted. Findings were significant for a large breast tumor in the tail of Guevara. There were also palpable axillary masses consistent with previously biopsied static lymph nodes. Markings were made on the skin for a large elliptical excision to include the central breast, and the tail of Guevara which was enlarged due to the tumor. The skin was incised with a #10 blade. Superior skin flap was raised uneventfully all the way to the infraclavicular area, and parasternal tissue medially. Laterally the flap was raised to the lateral edge of the latissimus dorsi muscle. Inferiorly the skin was incised, and the inferior flap was raised down to the level of the serratus anterior muscle laterally, and the external oblique medially. The breast was now taken off of the chest wall including the pectoralis major fascia. The tumor came off of the chest wall uneventfully without gross penetration of the posterior surface of the breast. We now set up the Bookwalter retractor for optimal exposure to the right axilla. We continue to elevate the skin flap superiorly laterally and inferiorly, and the retractors were placed into position. The breast was now taken off of the pectoralis major, pectoralis minor and serratus anterior medially. The long thoracic nerve was visualized in the low axilla, and maintained throughout the dissection unharmed. We now took the level of the dissection down to the axillary sheath, taking the axillary fat and lymph nodes off of the inferior surface of the axillary vein which was branched in many areas. Metastatic nodes were removed from level 1 and level 2 areas. There was no fixation of tumor to the muscle, or axillary sheath. There was a moderate amount of fibrotic reaction early as the tail of Guevara and infra axillary tissue was taken off of the latissimus dorsi muscle. I worked in a circumferential fashion preserving branches off of the axillary vein including the thoracodorsal vein, artery, and nerve. Of note at least 1 and possibly 2 intercostal brachial nerves were taken with the specimen as these nerves traversed the metastatic axillary nodes. Axillary contents were taken off of the anterior surface of the latissimus dorsi muscle with sharp dissection. Eventually the entire axilla was freed up along with the breast and marked with a long suture in the lateral position, short suture in the superior position, and sent to pathology in a large plastic bucket. I completed the axillary dissection with the removal of several additional small lymph nodes, level 2, under the pectoralis minor muscle. These were small lymph nodes. bleeding was minimal. These additional small lymph nodes were placed on a piece of Telfa and sent with the right breast and axillary contents. We placed 2 large Kris drains to the inferior lateral skin flap. Drain secured to the skin with 2-0 Prolene suture. We brought the arm down from the extended position to reduce tension on the skin flaps; hemostasis was carefully accomplished using gentle, low intensity electrocautery. Both the thoracodorsal and long thoracic nerves were reinspected, pinched and respective muscles twitched successfully. Flaps were viable. Avitene was placed in the recess of the wound after irrigating and reinspecting the tissue for any mechanical bleeders. Wound closed in layers with 2-0 Vicryl 3-0 Vicryl skin glue. Patient tolerated the procedure well, extubated, taken to recovery room in stable condition. The physician anesthesiology physician assistant, Ms. West, provided assistance during this case by: Assisting with tissue retraction, clip placement, instillation of local anest hesia and closure of skin incisions.
[2020-02-24] MEDS ORDERED: ACETAMINOPHEN WITH CODEINE #3 TABLET PO PRN (10:02)
[2020-02-24] MEDS ORDERED: ROPIVACAINE HCL 0.5% INJ/PF (5 MG/1 ML) 30 ML SDV ONE (10:40)
[2020-02-24] MEDS ORDERED: LABETALOL HCL INJ 20 MG/4 ML DISP.SYRIN IV ONE (10:50)
[2020-02-24] MEDS: LABETALOL HCL INJ 20 MG/4 ML DISP.SYRIN IV PRN ×3 (10:53→11:25)
[2020-02-24] MEDS ORDERED: HYDRALAZINE HCL INJ/PF 20 MG/1 ML SDV ONE (11:29)
[2020-02-24] MEDS ORDERED: ACETAMINOPHEN 1,000 MG/100 ML RTUPB IV SCH (12:00)
[2020-02-24] MEDS ORDERED: ACETAMINOPHEN INJ/PF 1000 MG/100 ML SDV IV SCH (12:00)
[2020-02-24] MEDS ORDERED: HYDRALAZINE HCL INJ/PF 20 MG/1 ML SDV IV ONE (13:00)
[2020-02-24] MEDS ORDERED: ONDANSETRON HCL INJ/PF 4 MG/2 ML SDV ONE (14:09)
[2020-02-24] MEDS ORDERED: DEXAMETHASONE SOD PHOSPHATE INJ 4 MG/1 ML VIAL ONE (14:09)
[2020-02-24] MEDS ORDERED: ACETAMINOPHEN 1,000 MG/100 ML RTUPB IV ONE ×3 (14:31→21:30)
[2020-02-24] MEDS: CEFAZOLIN 1 GM/D5W RTU 1 GM/50 ML RTUPB IV SCH ×3 (15:31→22:56)
[2020-02-24] MEDS: ACETAMINOPHEN 1,000 MG/100 ML RTUPB IV SCH (21:36)
[2020-02-25] MEDS ORDERED: ACETAMINOPHEN 1,000 MG/100 ML RTUPB IV ONE (03:20)
[2020-02-25] MEDS: ACETAMINOPHEN 1,000 MG/100 ML RTUPB IV SCH ×2 (03:31→10:52)
[2020-02-25] MEDS: CEFAZOLIN 1 GM/D5W RTU 1 GM/50 ML RTUPB IV SCH (05:43)
[2020-02-25 07:35] LABS: HEMATOCRIT 29.8 % (36.0-47.0); HEMOGLOBIN 9.9 g/dL (12.0-15.5); MEAN CORPUSCULAR HEMOGLOBIN 29.8 pg (27.0-33.4); MEAN CORPUSCULAR HGB CONC 33.4 g/dL (32.0-36.0); MEAN CORPUSCULAR VOLUME 89 fl (80-97); PLATELET COUNT 194 10^3/uL (150-450); RED BLOOD COUNT 3.33 10^6/uL (3.72-5.28); RED CELL DISTRIBUTION WIDTH 17.3 % (11.5-14.0); WHITE BLOOD COUNT 4.4 10^3/uL (4.0-10.5)
--- NOTE | 2020-02-25 09:42 | PDOC DISCHARGE SUMMARY ---
General - Admit/Disc Date/PCP Admission Date/Primary Care Provider: ADA RENDON MD Discharge Date: 02/25/20 - Discharge Diagnosis Final Diagnosis: Poorly differentiated, metastatic infiltrating ductal carcinoma right breast - Assessment Summary: Patient is a 55-year-old Afro-Gabonese female with locally advanced, poorly differentiated invasive ductal carcinoma right breast, status post neoadjuvant chemotherapy who was brought through ambulatory surgery for right modified radical mastectomy by Dr. Guerra. The procedure was performed on the morning of February 23. She tolerated the operation well, and was transferred to the floor where she was managed overnight. She had adequate pain control, drainage from 2 chest wall drains put out serosanguineous drainage, and her hemoglobin did drop approximately 2 g overnight to 9.9, likely delusional in nature. She was hemodynamically stable, tolerating a diet and voiding and had adequate pain control. She was discharged home from the floor to follow-up with Dr. Guerra in 1 week with discharge instructions provided - Additional Information Discharge Diet: As Tolerated Discharge Activity: Activity As Tolerated, Pelvic Rest Home Medications: Valsartan/Hydrochlorothiazide [Valsartan-Hctz 160-25 mg Tab] 1 each PO DAILY 08/05/19 Metoprolol Succinate 100 mg PO BID 02/19/20 History of Present Illiness History of Present Illness: MITCHELL SABILLON is a 55 year old female Physical Exam Vital Signs: Temp Pulse Resp BP Pulse Ox 97.7 F 80 16 135/75 H 95 02/25/20 08:56 02/25/20 08:56 02/25/20 08:56 02/25/20 08:56 02/25/20 08:56 Intake & Output 02/24/20 02/25/20 02/26/20 06:59 06:59 06:59 Intake Total 0 3050 Output Total 2200 45 Balance 0 850 -45 Weight 63.5 kg 59.9 kg Results Laboratory Results: WBC 4.4 10^3/uL (4.0-10.5) 02/25/20 06:09 RBC 3.33 10^6/uL (3.72-5.28) L 02/25/20 06:09 Hgb 9.9 g/dL (12.0-15.5) L 02/25/20 06:09 Hct 29.8 % (36.0-47.0) L 02/25/20 06:09 MCV 89 fl (80-97) 02/25/20 06:09 MCH 29.8 pg (27.0-33.4) 02/25/20 06:09 MCHC 33.4 g/dL (32.0-36.0) 02/25/20 06:09 RDW 17.3 % (11.5-14.0) H 02/25/20 06:09 Plt Count 194 10^3/uL (150-450) 02/25/20 06:09 Sodium 139.7 mmol/L (137-145) 02/19/20 11:46 Potassium 3.6 mmol/L (3.6-5.0) 02/24/20 06:27 Chloride 102 mmol/L (98-107) 02/19/20 11:46 Carbon Dioxide 28 mmol/L (22-30) 02/19/20 11:46 Anion Gap 10 (5-19) 02/19/20 11:46 BUN 15 mg/dL (7-20) 02/19/20 11:46 Creatinine 0.77 mg/dL (0.52-1.25) 02/19/20 11:46 Est GFR ( Amer) > 60 (>60) 02/19/20 11:46 Est GFR (MDRD) Non-Af > 60 (>60) 02/19/20 11:46 Glucose 93 mg/dL (75-110) 02/19/20 11:46 Calcium 10.1 mg/dL (8.4-10.2) 02/19/20 11:46 COVID-19 Source See comment 02/19/20 11:40 COVID-19 (AYLIN) Not Detected (Not Detect) 02/19/20 11:40
[2020-02-25 11:44] VITALS: BP 132/73
== END 2020-02-25 12:55 | disposition home or self-care (01) ==
LOC: OROUT 05:37 → 2N 13:51 → OROUT 02-25 12:55
PROVIDERS: ATTEND Surgery
DX: C50.811 Malignant neoplasm of overlapping sites of right female breast (principal); C77.3 Secondary and unspecified malignant neoplasm of axilla and upper limb lymph nodes; I10 Essential (primary) hypertension; Z79.899 Other long term (current) drug therapy; Z98.890 Other specified postprocedural states; Z03.818 Encounter for observation for suspected exposure to other biological agents ruled out
CPT/HCPCS: 93005; 36415 ×2; 84132; 85027 ×2; 80048; 88342 ×2; 88341 ×2; 88309 ×2; 94799; 93010; 00404; 19307; U0003; J2795; J2250; J0690 ×2; J1100; J3010; J0360; J3490 ×3; J2001; J1170; J2405; J2704; J0131 ×2; C9803; 404; 87635

== ENCOUNTER → 2020-03-09 | Outpatient (CLI) | payer BC, OTHER ==
--- NOTE | 2020-03-09 12:25 | RADIOLOGY REPORT (SQ) ---
EXAM DESCRIPTION: NM WHOLE BODY BONE SCAN IMAGES COMPLETED DATE/TIME: 03/09/2020 11:17 am REASON FOR STUDY: MALIG NEOPLM OF UPPER-OUTER QUADRANT OF RIGHT FEMALE BREAST C50.411 MALIG NEOPLM OF UPPER-OUTER QUADRANT OF RIGHT FEMALE COMPARISON: 08/07/2019 RADIONUCLIDE AND DOSE: 20 millicuries Tc99m MDP. The route of agent administration: Intravenous. ADDITIONAL DRUGS AND DOSES: None. TECHNIQUE: Routine delayed images at 3 hours post radionuclide injection acquired of the bony skelet on including anterior and posterior whole-body projections and additional focused images as needed. LIMITATIONS: None. FINDINGS: BONES: Persistent mild uptake in the left knee, likely degenerative. No other significant abnormal uptake. KIDNEYS: Symmetric excretion without obstruction. OTHER: No other significant finding. IMPRESSION: No evidence of metastatic disease to bone. COMMENT: Quality measure 147: Current bone scan is compared with any available plain radiographs, p rior bone scans, and CT/MRI. TECHNICAL DOCUMENTATION: JOB ID: [id number] 2010 [employer]- All Rights Reserved Reading location - IP/workstation name: [email or web address]
--- NOTE | 2020-03-09 12:55 | RADIOLOGY REPORT (SQ) ---
EXAM DESCRIPTION: CT CHEST WITH IMAGES COMPLETED DATE/TIME: 03/09/2020 8:23 am REASON FOR STUDY: MALIG NEOPLM OF UPPER-OUTER QUADRANT OF RIGHT FEMALE BREAST C50.411 MALIG NEOPLM OF UPPER-OUTER QUADRANT OF RIGHT FEMALE COMPARISON: CT of the chest with contrast from 08/04/2019 an bone scan from 03/09/2020. TECHNIQUE: CT scan of the chest performed using helical scanning technique with dynamic intravenous contrast injection. Images reviewed with lung, soft tissue and bone windows. Reconstructed coronal and sagittal MPR and MIP images reviewed. All images stored on PACS. All CT scanners at this facility use dose modulation, iterative reconstruction, and/or weight based d osing when appropriate to reduce radiation dose to as low as reasonably achievable (ALARA). [facility]: Dose Right [facility]: CareDose [facility]: Dose Right [facility]: Teradose 4D [facility]: [employer] CONTRAST TYPE AND DOSE: 67 mL Omnipaque 350- low osmolar. RENAL FUNCTION: GFR > 60. RADIATION DOSE: CT Rad equipment meets quality standard of care and radiation dose reduction techniq ues were employed. CTDIvol: 4.4 - 4.7 mGy. DLP: 611 mGy-cm. LIMITATIONS: None. FINDINGS: LUNGS AND PLEURA: The trachea and main bronchi are patent. There small bilateral pleural effusions associated with areas of subsegmental atelectasis in the lower lobes ; of note, the fluid t racks into the interlobar fissure on the left. There is no consolidation, ground-glass opacification or pulmonary nodule. HILAR AND MEDIASTINAL STRUCTURES: No adenopathy or mass. HEART AND VASCULAR STRUCTURES: No aneurysm or dissection of the thoracic aorta. No cardiomegaly or p ericardial effusion. HARDWARE: The tip of the port catheter terminates within the SVC. UPPER ABDOMEN: Refer to the separate report of the CT of the abdomen. THYROID AND OTHER SOFT TISSUES: Status post right mastectomy and axillary lymph node dissection. The re is a surgical drain in place and on image 13 of series 2 there is a 6 mm short axis right axillary lymph node. There is no contralateral axillary adenopathy. BONES: No fracture or osseous lesion. OTHER: No other findings. IMPRESSION: 1. Status post right mastectomy and axillary lymph node dissection. There is a surgical drain in place within the mastectomy bed and there is a 6 mm short axis right axillary lymph node (i mage 13 of series 2). 2. Small bilateral pleural effusions. There are no pulmonary nodules. TECHNICAL DOCUMENTATION: JOB ID: [id number] Quality ID # [id number]: Final reports with documentation of one or more dose reduction techniques (e.g., Au tomated exposure control, adjustment of the mA and/or kV according to patient size, use of iterative reconstruction technique) 2010 [email or web address]- All Rights Reserved Reading location - IP/workstation name: [email or web address]
--- NOTE | 2020-03-09 13:21 | RADIOLOGY REPORT (SQ) ---
EXAM DESCRIPTION: CT ABD/PELVIS WITH IV ONLY IMAGES COMPLETED DATE/TIME: 03/09/2020 8:23 am REASON FOR STUDY: MALIG NEOPLM OF UPPER-OUTER QUADRANT OF RIGHT FEMALE BREAST C50.411 MALIG NEOPLM OF UPPER-OUTER QUADRANT OF RIGHT FEMALE COMPARISON: MRI of the abdomen from 08/27/[address] of the abdomen pelvis with contrast from 08/04/19 TECHNIQUE: CT scan of the abdomen and pelvis performed using helical scanning technique with dynamic intravenous contrast injection. No oral contrast. Images reviewed with lung, soft tissue, and bone windows. Reconstructed coronal and sagittal MPR images reviewed. Delayed images for evaluation of the urinary system also acquired. All images stored on PACS. All CT scanners at this facility use dose modulation, iterative reconstruction, and/or weight based d osing when appropriate to reduce radiation dose to as low as reasonably achievable (ALARA). [facility]: Dose Right [facility]: CareDose [facility]: Dose Right [facility]: Teradose 4D [facility]: [employer] CONTRAST TYPE AND DOSE: Contrast/concentration: Isovue 350.00 mmol/ml; Total Contrast Delivered: 67. 0 ml; Total Saline Delivered: 64.9 ml RENAL FUNCTION: GFR > 60. LIMITATIONS: None. FINDINGS: LOWER CHEST: Refer to the separate report of the CT of the chest. LIVER: Stable 18 x 14 mm hemangioma in the right hepatic lobe. SPLEEN: No splenomegaly or splenic mass. PANCREAS: No acute gross abnormality of the pancreas. GALLBLADDER: No abnormality that is apparent on CT. ADRENAL GLANDS: No mass or asymmetry. RIGHT KIDNEY AND URETER: No solid mass, hydronephrosis, nephrolithiasis, hydroureter or ureterolithia sis. LEFT KIDNEY AND URETER: The subcentimeter low-attenuation lesion in the medial cortex of the kidney ( image 19 of series 3) is unchanged and considered too small to characterize. There is no solid mass, hydronephrosis, nephrolithiasis, hydroureter or ureterolithiasis. AORTA AND VESSELS: The left gonadal vein is enlarged and there are prominent parametrial vessels on t he left - correlate for pelvic congestion syndrome. RETROPERITONEUM: No retroperitoneal adenopathy, hemorrhage or mass. BOWEL AND PERITONEAL CAVITY: No bowel obstruction, bowel wall thickening or pericolonic/ perienteric inflammation. No mesenteric adenopathy, free intraperitoneal fluid or mesenteric/ omental inflammati on. APPENDIX: Normal. PELVIS: The urinary bladder is distended and normal in appearance. There is no adnexal mass. ABDOMINAL WALL: No mass or hernia. BONES: No fracture or osseous lesion OTHER: No other findings. IMPRESSION: 1. No acute intra-abdominal abnormality. 2. Stable hemangioma within the right hepatic lobe. 3. Enlarged left gonadal vein and prominent left-sided parametrial vessels. Correlate for pelvic con gestion syndrome. TECHNICAL DOCUMENTATION: JOB ID: [id number] Quality ID # [id number]: Final reports with documentation of one or more dose reduction techniques (e.g., Au tomated exposure control, adjustment of the mA and/or kV according to patient size, use of iterative reconstruction technique) 2010 [employer]- All Rights Reserved Reading location - IP/workstation name: [email or web address]
== END ==
LOC: RAD 08:00
PROVIDERS: ATTEND Internal Medicine Hematology & Oncology
DX: C50.411 Malignant neoplasm of upper-outer quadrant of right female breast (principal); D18.03 Hemangioma of intra-abdominal structures
CPT/HCPCS: 78306; 71260; 74177; A9503; Q9969

== ENCOUNTER → 2020-04-28 | Outpatient (CLI) | payer BC, OTHER ==
--- NOTE | 2020-04-28 14:05 | RADIOLOGY REPORT (SQ) ---
EXAM DESCRIPTION: NM MUGA REST IMAGES COMPLETED DATE/TIME: 04/28/2020 12:14 pm REASON FOR STUDY: MONITORING OF CARDIOTOXIC DRUGS C50.411 MALIG NEOPLM OF UPPER-OUTER QUADRANT OF R IGHT FEMALE COMPARISON: 02/01/2020. RADIONUCLIDE AND DOSE: 26.9 mCi technetium 99m labeled red blood cells The route of agent administration: Intravenous TECHNIQUE: Following administration of the radionuclide, gated images of the heart are obtained in t hree projections. Left ventricular functional analysis performed. LIMITATIONS: None. FINDINGS: LEFT VENTRICULAR FUNCTION: EJECTION FRACTION: 62%. END-DIASTOLIC VOLUME: 118 mL. END-SYSTOLIC VOLUME: 31 mL. WALL MOTION: No focal wall motion abnormalities. OTHER: No other significant finding. IMPRESSION: NORMAL CARDIAC MUGA STUDY. NORMAL LEFT VENTRICULAR FUNCTION WITH VALUES ABOVE. TECHNICAL DOCUMENTATION: JOB ID: [id number] [employer]- All Rights Reserved Reading location - IP/workstation name: [email or web address]
== END ==
LOC: RAD 10:55
PROVIDERS: ATTEND Internal Medicine Hematology & Oncology
DX: C50.411 Malignant neoplasm of upper-outer quadrant of right female breast (principal); T45.1X5D Adverse effect of antineoplastic and immunosuppressive drugs, subsequent encounter; Z51.81 Encounter for therapeutic drug level monitoring; Z79.899 Other long term (current) drug therapy
CPT/HCPCS: 78472; A9560; J1642; Q9969